=== PATIENT | female | born 1990 | race Caucasian/White ===

== ENCOUNTER 2017-09-30 11:07 | Emergency (ER) | payer MEDICAID ==
[~2017-09-30] VITALS: Ht 165.1 cm; Wt 77.3 kg
[~2017-09-30 11:07] MED LIST: ALPR-624 PO; CHLO25CA10 PO; CLIN150C8 PO; NAPR-56 PO; NO HOME MEDS
[2017-09-30 11:10] VITALS: BP 121/79
== END 2017-09-30 12:26 | disposition home or self-care (01) ==
LOC: ER 11:07
DX: J02.9 Acute pharyngitis, unspecified (principal); R50.9 Fever, unspecified; H92.02 Otalgia, left ear; G89.29 Other chronic pain; F10.10 Alcohol abuse, uncomplicated; Z88.0 Allergy status to penicillin; Z79.2 Long term (current) use of antibiotics; Z79.1 Long term (current) use of non-steroidal anti-inflammatories (NSAID)
CPT/HCPCS: 87077; 87081; 87880; 99284